=== PATIENT | female | born 1950 | race Caucasian/White ===

== ENCOUNTER → 2018-12-08 | Outpatient (CLI) | payer MEDICARE ==
[2018-12-08 12:01] LABS: ABSOLUTE EOSINOPHILS # (AUTO) 0.1 10^3/uL (0.0-0.6); ABSOLUTE LYMPHOCYTES (AUTO) 1.7 10^3/uL (0.5-4.7); ABSOLUTE MONOCYTES (AUTO) 0.4 10^3/uL (0.1-1.4); ABSOLUTE NEUT (AUTO) 2.4 10^3/uL (1.7-8.2); BASOPHILS % (AUTO) 0.5 % (0-2); EOSINOPHILS % (AUTO) 2.6 % (0-6); HEMOGLOBIN 12.8 g/dL (12.0-15.5); LYMPHOCYTES % (AUTO) 35.4 % (13-45); MEAN CORPUSCULAR HEMOGLOBIN 29.9 pg (27.0-33.4); MEAN CORPUSCULAR HGB CONC 33.7 g/dL (32.0-36.0); MEAN CORPUSCULAR VOLUME 89 fl (80-97); MONOCYTES % (AUTO) 9.6 % (3-13); PLATELET COUNT 190 10^3/uL (150-450); RED BLOOD COUNT 4.29 10^6/uL (3.72-5.28); RED CELL DISTRIBUTION WIDTH 15.8 % (11.5-14.0); SEGMENTED NEUTROPHILS % (AUTO) 51.9 % (42-78); TOTAL CELLS COUNTED % (AUTO) 100 %; WHITE BLOOD COUNT 4.7 10^3/uL (4.0-10.5)
[2018-12-08 12:11] LABS: APPEARANCE,URINE SLIGHTLY-CLOUDY; BILIRUBIN,URINE NEGATIVE (NEGATIVE); COLOR,URINE YELLOW; GLUCOSE, URINE NEGATIVE (NEGATIVE); KETONES,URINE NEGATIVE (NEGATIVE); LEUKOCYTE ESTERASE,URINE TRACE (NEGATIVE); NITRITE,URINE NEGATIVE (NEGATIVE); PROTEIN,URINE 30 mg/dL (NEGATIVE); URINE SPECIFIC GRAVITY 1.021; UROBILINOGEN,URINE NEGATIVE mg/dL (<2.0)
[2018-12-08 12:24] LABS: ALANINE AMINOTRANSFERASE 20 U/L (9-52); ALKALINE PHOSPHATASE 69 U/L (38-126); ANION GAP 6 (5-19); ASPARTATE AMINO TRANSFERASE 26 U/L (14-36); BILIRUBIN,DIRECT 0.2 mg/dL (0.0-0.4); BILIRUBIN,TOTAL 0.5 mg/dL (0.2-1.3); BLOOD UREA NITROGEN 22 mg/dL (7-20); CARBON DIOXIDE 33 mmol/L (22-30); CHLORIDE 103 mmol/L (98-107); CHOLESTEROL 153.85 mg/dL (0-200); GLUCOSE 88 mg/dL (75-110); POTASSIUM 5.4 mmol/L (3.6-5.0); SODIUM 142.4 mmol/L (137-145); TOTAL PROTEIN 7.2 g/dL (6.3-8.2); TRIGLYCERIDES 158 mg/dL (<150)
[2018-12-08 12:36] LABS: DIRECT LDL 97 mg/dL (<100)
[2018-12-08 12:41] LABS: VLDL CHOLESTEROL 31.6 mg/dL (10-31)
--- NOTE | 2018-12-08 12:43 | WOMENS IMAGING REPORT ---
EXAM DESCRIPTION: BONE DENSITY HIP/SPINE COMPLETED DATE/TIME: 12/08/2018 11:36 am REASON FOR STUDY: BONE DENSITY;M81.0 OSTEOPOROSIS W/ CURRENT PATHOLOGICAL FX R09.89 OTH SYMPTOMS AN D SIGNS INVOLVING THE CIRC AND RESP SY Z12.31 ENCNTR SCREEN MAMMOGRAM FOR MALIGNANT NEOPLASM OF CLIFFORD M81.0 AGE-RELATED OSTEOPOROSIS W/O CURRENT PATHOLOGICAL FRAC COMPARISON: None. TECHNIQUE: Dual-Energy X-ray Absorptiometry (DEXA) of the AP Spine and Hip. LIMITATIONS: None. FINDINGS: LUMBAR SPINE: The bone mineral density (BMD) measured from L1-L4 in the AP projection correlates with a T-score of -2.5, which is osteoporotic as defined by the World Health Organization. HIP: The bone mineral density (BMD) measured in the left femoral neck at the hip correlates with a T-score of -2.9, which is osteoporotic as defined by the World Health Organization. IMPRESSION: 1. LUMBAR SPINE: Osteoporotic 2. HIP: Osteoporotic COMMENT: The World Health Organization defines low BMD as follows: T-score: Normal: Greater than -1.0 Osteopenia: Between -1.0 and -2.5 Osteoporosis: Less than -2.5 without fractures Established osteoporosis: Less than -2.5 with fractures In general, you may wish to consider: Diagnosis Treatment Follow-up DEXA Normal BMD Prevention 2-3 years Osteopenia Prevention/Therapy 1-2 years Osteoporosis Therapy Yearly TECHNICAL DOCUMENTATION: JOB ID: [id number]- All Rights Reserved Reading location - IP/workstation name: [email or web address]
--- NOTE | 2018-12-08 14:20 | WOMENS IMAGING REPORT ---
EXAM DESCRIPTION: BILAT SCREENING MAMMO W/CAD COMPLETED DATE/TIME: 12/08/2018 11:11 am REASON FOR STUDY: Z12.31 ENCOUNTER FOR SCREENING MAMMOGRAM FOR MALIGNANT NEOPLASM OF BREAST R09.89 OTH SYMPTOMS AND SIGNS INVOLVING THE CIRC AND RESP SY Z12.31 ENCNTR SCREEN MAMMOGRAM FOR MALIGNANT N EOPLASM OF CLIFFORD COMPARISON: None. TECHNIQUE: Standard craniocaudal and mediolateral oblique views of each breast recorded using digita l acquisition. LIMITATIONS: None. FINDINGS: No masses, calcifications or architectural distortion. No areas of suspicion. Read with the assistance of CAD. .[facility] - R2 Cenova Version 1.3 .[facility] - R2 Cenova Version 2.1 .[facility] - R2 Cenova Version 2.4 [facility]2 Cenova Version 2.4 .[facility] - R2 [employer] Team Member Version 9.2 IMPRESSION: NORMAL MAMMOGRAM. BIRADS 1. BREAST DENSITY: b. There are scattered areas of fibroglandular density. BIRAD: 1 NEGATIVE RECOMMENDATION: ROUTINE SCREENING COMMENT: The patient has been notified of the results by letter per SA requirements. Additional no tification policies are in place for contacting patient with suspicious or incomplete findings. Quality ID #[id number]: The [employer] recommends an annual screening mammogram for women aged 40 years or over. This facility utilizes a reminder system to ensure that all patients receive reminder letters, and/or direct phone calls for appointments. This includes reminders for routine scr eening mammograms, diagnostic mammograms, or other Breast Imaging Interventions when appropriate. Th is patient will be placed in the appropriate reminder system. The [employer] (ACR) has developed recommendations for screening MRI of the breast s in certain patient populations, to be used in conjunction with mammography. Breast MRI surveillanc e may be appropriate for women with more than 20% lifetime risk of developing breast cancer as deter mined by genetic testing, significant family history of the disease, or history of mantle radiation f or Hodgkins Disease. ACR Practice Guidelines 2008. TECHNICAL DOCUMENTATION: FINDING NUMBER: (1) ASSESSMENT: (1) JOB ID: [id number] [employer]- All Rights Reserved Reading location - IP/workstation name: [email or web address]
--- NOTE | 2018-12-08 16:01 | RADIOLOGY REPORT (SQ) ---
EXAM DESCRIPTION: CAROTID DOPPLER COMPLETED DATE/TIME: 12/08/2018 3:06 pm REASON FOR STUDY: BRUIT R09.89 OTH SYMPTOMS AND SIGNS INVOLVING THE CIRC AND RESP SY Z12.31 ENCNTR SCREEN MAMMOGRAM FOR MALIGNANT NEOPLASM OF CLIFFORD M81.0 AGE-RELATED OSTEOPOROSIS W/O CURRENT PATHOLOGI JOSE DE JESUS FRAC COMPARISON: None. TECHNIQUE: Grayscale ultrasound, Doppler velocity and spectra, and color Doppler images acquired of the extra-cranial carotid and vertebral arteries. Images stored on PACS. LIMITATIONS: None. FINDINGS: RIGHT CAROTID CCA Velocities: Within normal limits. Peak systolic velocity right common carotid artery 0.59 m/sec. Diffuse intimal thickening ICA Velocities Peak systolic 0.85 m/s. End diastolic 0.30 m/s. Proximal ICA/CCA peak systolic ratio 1.9. Dense calcific shadowing plaque is present at the right carotid bifurcation. Immediately distal to he shadowing plaque, velocities suggest less than 50% diameter narrowing of the proximal right ICA. LEFT CAROTID CCA Velocities: Within normal limits. Peak systolic velocity left common carotid artery 0.59 m/sec. Diffuse intimal thickening. ICA Velocities Peak systolic 0.45 m/s. End diastolic 0.18 m/s. Proximal ICA/CCA peak systolic ratio 1.6. Dense calcific shadowing plaque is present at the left carotid bifurcation. Immediately distal to th e shadowing plaque, velocities suggest less than 50% diameter narrowing of the proximal left ICA VERTEBRAL ARTERIES: Antegrade flow. Normal waveforms. SUBCLAVIAN ARTERIES: Not evaluated OTHER: No other significant finding. IMPRESSION: NO HEMODYNAMICALLY SIGNIFICANT STENOSIS OF THE PROXIMAL RIGHT AND LEFT INTERNAL CAROTID ARTERIES. COMMENT: Quality ID #195: Velocity criteria are extrapolated from the diameter data as defined by t he Society of Radiologists in Ultrasound Consensus Conference. Radiology 2003: 229; 340-346. TECHNICAL DOCUMENTATION: JOB ID: [id number] [employer]- All Rights Reserved Reading location - IP/workstation name: [email or web address]
[2018-12-09 12:38] LABS: CREATININE URINE 200.6 mg/dL (Not Estab.); MICROALBUMIN URINE 86.2 ug/mL (Not Estab.)
== END ==
LOC: SP 09:12
PROVIDERS: ATTEND Internal Medicine
DX: Z12.31 Encounter for screening mammogram for malignant neoplasm of breast (principal); M81.0 Age-related osteoporosis without current pathological fracture; I10 Essential (primary) hypertension; R09.89 Other specified symptoms and signs involving the circulatory and respiratory systems; E78.49 Other hyperlipidemia; I42.9 Cardiomyopathy, unspecified; I73.9 Peripheral vascular disease, unspecified; R73.01 Impaired fasting glucose; Z79.899 Other long term (current) drug therapy
CPT/HCPCS: 36415; 77067; 77080; 80053; 80061; 81001; 82043; 82570; 82652; 83036; 84443; 85025; 93880

== ENCOUNTER → 2018-12-17 | Outpatient (CLI) | payer MEDICARE | LOC: OD 13:32 | PROVIDERS: ATTEND Internal Medicine | DX: E87.5 Hyperkalemia (principal) | CPT/HCPCS: 36415; 84132 ==

== ENCOUNTER → 2019-02-24 | Outpatient (CLI) | payer MEDICARE ==
[2019-02-24 10:10] LABS: ANION GAP 9 (5-19); BLOOD UREA NITROGEN 19 mg/dL (7-20); CALCIUM 10.3 mg/dL (8.4-10.2); CARBON DIOXIDE 32 mmol/L (22-30); CHLORIDE 101 mmol/L (98-107); CHOLESTEROL 127.86 mg/dL (0-200); GLUCOSE 97 mg/dL (75-110); POTASSIUM 4.7 mmol/L (3.6-5.0); SODIUM 141.8 mmol/L (137-145); TRIGLYCERIDES 91 mg/dL (<150)
[2019-02-24 10:21] LABS: DIRECT LDL 85 mg/dL (<100)
== END ==
LOC: OD 09:12
PROVIDERS: ATTEND Internal Medicine
DX: N19 Unspecified kidney failure (principal); E78.5 Hyperlipidemia, unspecified
CPT/HCPCS: 36415; 80048; 80061

== ENCOUNTER → 2019-04-27 | Outpatient (CLI) | payer MEDICARE, OTHER ==
[2019-04-27 11:01] LABS: ANION GAP 6 (5-19); BLOOD UREA NITROGEN 17 mg/dL (7-20); CALCIUM 9.8 mg/dL (8.4-10.2); CARBON DIOXIDE 29 mmol/L (22-30); CHLORIDE 106 mmol/L (98-107); CHOLESTEROL 123.41 mg/dL (0-200); GLUCOSE 91 mg/dL (75-110); POTASSIUM 4.8 mmol/L (3.6-5.0); TRIGLYCERIDES 74 mg/dL (<150)
[2019-04-27 11:32] LABS: DIRECT LDL 86 mg/dL (<100)
== END ==
LOC: OD 09:32
PROVIDERS: ATTEND Internal Medicine
DX: N19 Unspecified kidney failure (principal); E11.9 Type 2 diabetes mellitus without complications; E78.5 Hyperlipidemia, unspecified; E55.9 Vitamin D deficiency, unspecified
CPT/HCPCS: 36415; 80048; 80061; 82306; 83036

== ENCOUNTER → 2019-07-26 | Outpatient (CLI) | payer MEDICARE, OTHER ==
[2019-07-26 10:50] LABS: ANION GAP 8 (5-19); BLOOD UREA NITROGEN 18 mg/dL (7-20); CALCIUM 10.4 mg/dL (8.4-10.2); CARBON DIOXIDE 31 mmol/L (22-30); CHLORIDE 102 mmol/L (98-107); CHOLESTEROL 147.53 mg/dL (0-200); GLUCOSE 92 mg/dL (75-110); TRIGLYCERIDES 109 mg/dL (<150)
[2019-07-26 11:00] LABS: DIRECT LDL 102 mg/dL (<100)
== END ==
LOC: OD 08:53
PROVIDERS: ATTEND Family Medicine
DX: E78.5 Hyperlipidemia, unspecified (principal); N18.3 Chronic kidney disease, stage 3 (moderate); E55.9 Vitamin D deficiency, unspecified; E11.9 Type 2 diabetes mellitus without complications
CPT/HCPCS: 36415; 80048; 80061; 82306; 83036

== ENCOUNTER → 2019-11-18 | Outpatient (CLI) | payer MEDICARE, OTHER ==
[2019-11-18 10:13] LABS: ALBUMIN 3.7 g/dL (3.5-5.0); ALKALINE PHOSPHATASE 65 U/L (38-126); ANION GAP 5 (5-19); ASPARTATE AMINO TRANSFERASE 31 U/L (14-36); BILIRUBIN,TOTAL 0.3 mg/dL (0.2-1.3); BLOOD UREA NITROGEN 19 mg/dL (7-20); CALCIUM 9.7 mg/dL (8.4-10.2); CARBON DIOXIDE 30 mmol/L (22-30); CHLORIDE 106 mmol/L (98-107); CHOLESTEROL 105.85 mg/dL (0-200); GLUCOSE 76 mg/dL (75-110); POTASSIUM 4.7 mmol/L (3.6-5.0); TOTAL PROTEIN 6.7 g/dL (6.3-8.2); TRIGLYCERIDES 74 mg/dL (<150)
[2019-11-18 10:24] LABS: DIRECT LDL 75 mg/dL (<100)
[2019-11-19 13:37] LABS: CREATININE URINE 110.3 mg/dL (Not Estab.); MICROALBUMIN URINE 86.9 ug/mL (Not Estab.)
== END ==
LOC: OD 08:30
PROVIDERS: ATTEND Family Medicine
DX: M25.552 Pain in left hip (principal); E11.9 Type 2 diabetes mellitus without complications; E78.2 Mixed hyperlipidemia
CPT/HCPCS: 36415; 80053; 80061; 82043; 82570; 83036

== ENCOUNTER 2020-03-27 16:06 | Emergency (ER) | payer MEDICARE, OTHER ==
--- NOTE | 2020-03-27 16:22 | ER Document Report ---
ED Medical Screen (RME) - General Chief Complaint: Suicidal Ideation Stated Complaint: SUICIDAL IDEATION Time Seen by Provider: 03/27/20 16:16 Primary Care Provider: BASILIO KUO MD [Primary Care Provider] - Follow up as needed Mode of Arrival: Ambulatory Information source: Patient Notes: 69-year-old female presented to ED for suicidal ideation. She states that she had a fight with her daughter and she told her daughter that maybe she should just . She states she was not serious she did not really mean she was can harm herself. She states that her daughter brought her to the emergency room. She states she does get depressed sometimes and she has a fight with her daughter sometimes. She states she does smoke 4 cigarettes a day does not drink alcohol or do any illicit drugs. I have greeted and performed a rapid initial assessment of this patient. A comprehensive ED assessment and evaluation of the patient, analysis of test results and completion of medical decision making process will be conducted by an additional ED providers. TRAVEL OUTSIDE OF THE [place] IN LAST 30 DAYS: No - Related Data Allergies/Adverse Reactions: No Known Allergies Allergy (Verified 03/27/20 16:16) Physical Exam - Vital signs Vitals: Temp Pulse Resp BP Pulse Ox 97.7 F 73 18 127/97 H 100 03/27/20 16:14 03/27/20 16:14 03/27/20 16:14 03/27/20 16:14 03/27/20 16:14 Course - Vital Signs Vital signs: Temp Pulse Resp BP Pulse Ox 97.7 F 73 18 127/97 H 100 03/27/20 16:14 03/27/20 16:14 03/27/20 16:14 03/27/20 16:14 03/27/20 16:14 Doctor's Discharge - Discharge Referrals: BASILIO KUO MD [Primary Care Provider] - Follow up as needed
[2020-03-27 17:18] LABS: ABSOLUTE BASOPHILS # (AUTO) 0.1 10^3/uL (0.0-0.2); ABSOLUTE EOSINOPHILS # (AUTO) 0.2 10^3/uL (0.0-0.6); ABSOLUTE LYMPHOCYTES (AUTO) 1.9 10^3/uL (0.5-4.7); ABSOLUTE MONOCYTES (AUTO) 0.8 10^3/uL (0.1-1.4); ABSOLUTE NEUT (AUTO) 9.2 10^3/uL (1.7-8.2); BASOPHILS % (AUTO) 0.6 % (0-2); EOSINOPHILS % (AUTO) 1.3 % (0-6); HEMATOCRIT 46.7 % (36.0-47.0); HEMOGLOBIN 15.7 g/dL (12.0-15.5); LYMPHOCYTES % (AUTO) 15.6 % (13-45); MEAN CORPUSCULAR HEMOGLOBIN 31.3 pg (27.0-33.4); MEAN CORPUSCULAR HGB CONC 33.6 g/dL (32.0-36.0); MEAN CORPUSCULAR VOLUME 93 fl (80-97); MONOCYTES % (AUTO) 6.6 % (3-13); PLATELET COUNT 240 10^3/uL (150-450); RED BLOOD COUNT 5.02 10^6/uL (3.72-5.28); RED CELL DISTRIBUTION WIDTH 14.4 % (11.5-14.0); SEGMENTED NEUTROPHILS % (AUTO) 75.9 % (42-78); TOTAL CELLS COUNTED % (AUTO) 100 %; WHITE BLOOD COUNT 12.1 10^3/uL (4.0-10.5)
[2020-03-27 17:43] LABS: ALBUMIN 4.7 g/dL (3.5-5.0); ALKALINE PHOSPHATASE 102 U/L (38-126); ANION GAP 6 (5-19); ASPARTATE AMINO TRANSFERASE 53 U/L (14-36); BILIRUBIN,DIRECT 0.1 mg/dL (0.0-0.4); BILIRUBIN,TOTAL 0.7 mg/dL (0.2-1.3); BLOOD UREA NITROGEN 10 mg/dL (7-20); CALCIUM 10.6 mg/dL (8.4-10.2); CARBON DIOXIDE 31 mmol/L (22-30); CHLORIDE 102 mmol/L (98-107); GLUCOSE 92 mg/dL (75-110); TOTAL PROTEIN 8.3 g/dL (6.3-8.2)
[2020-03-27 17:44] LABS: ALCOHOL < 10 mg/dL (NONE DETECTED); APPEARANCE,URINE CLEAR; BILIRUBIN,URINE NEGATIVE (NEGATIVE); COLOR,URINE YELLOW; GLUCOSE, URINE NEGATIVE (NEGATIVE); KETONES,URINE NEGATIVE (NEGATIVE); LEUKOCYTE ESTERASE,URINE NEGATIVE (NEGATIVE); NITRITE,URINE NEGATIVE (NEGATIVE); PROTEIN,URINE NEGATIVE (NEGATIVE); URINE SPECIFIC GRAVITY 1.005; UROBILINOGEN,URINE NEGATIVE mg/dL (<2.0)
[2020-03-27 17:45] LABS: ACETAMINOPHEN < 10 ug/mL (10-30); SALICYLATE < 1.0 mg/dL (2.0-20.0)
[2020-03-27 18:04] LABS: URINE AMPHETAMINES SCREEN NEGATIVE; URINE BARBITURATES SCREEN NEGATIVE; URINE BENZODIAZEPINES SCREEN NEGATIVE; URINE COCAINE SCREEN NEGATIVE; URINE MARIJUANA (THC) SCREEN NEGATIVE; URINE METHADONE SCREEN NEGATIVE; URINE PHENCYCLIDINE SCREEN NEGATIVE
--- NOTE | 2020-03-27 18:41 | ER Document Report ---
ED Psych Disorder / Suicide - General Mode of Arrival: Ambulatory Information source: Patient, Relative TRAVEL OUTSIDE OF THE [place] IN LAST 30 DAYS: No <SHUBHAM LUBIN - Last Filed: 03/27/20 20:22> <JULIEN OLSON - Last Filed: 03/28/20 12:25> <VALERIEJOI Damaris - Last Filed: 03/28/20 14:59> - General Chief Complaint: Psych Problem Stated Complaint: SUICIDAL IDEATION Time Seen by Provider: 03/27/20 16:16 Primary Care Provider: [facility] [Outside] - Follow up as needed BASILIO KUO MD [COMMUNITY BASED STAFF] - Follow up as needed Notes: This 69-year-old female patient is brought to emergency room for evaluation of suicidal ideations. Her daughter had noted some signs suggesting dementia recently. The patient was living in a home in front of the daughter's house, but her spouse had to move in with the daughter due to his declining health. The patient and her spouse moved to this area from [place] about 2 years ago to be with the daughter. The patient misses her friends in [place]. She did say something to the daughter today about cutting herself or suicide. ( SHUBHAM LUBIN) - Related Data Allergies/Adverse Reactions: No Known Allergies Allergy (Verified 03/27/20 16:16) Past Medical History - General Information source: Patient - Social History Smoking Status: Current Every Day Smoker Cigarette use (# per day): Yes Chew tobacco use (# tins/day): No Smoking Education Provided: No Frequency of alcohol use: None Drug Abuse: None Lives with: Alone Family History: Reviewed & Not Pertinent Patient has homicidal ideation: No - Past Medical History Cardiac Medical History: Reports: Hx Hypercholesterolemia EENT Medical History: Reports: Other - Glaucoma Endocrine Medical History: Reports: Hx Diabetes Mellitus Type 2 Musculoskeletal Medical History: Reports Other - Osteoporosis Psychiatric Medical History: Reports: Hx Dementia <SHUBHAM LUBIN - Last Filed: 03/27/20 20:22> Review of Systems - Review of Systems Constitutional: No symptoms reported EENT: No symptoms reported Cardiovascular: No symptoms reported Respiratory: No symptoms reported Gastrointestinal: No symptoms reported Genitourinary: No symptoms reported Female Genitourinary: Post menopausal Musculoskeletal: No symptoms reported Skin: No symptoms reported Hematologic/Lymphatic: No symptoms reported Neurological/Psychological: Dementia, Suicidal ideation <SHUBHAM LUBIN - Last Filed: 03/27/20 20:22> Physical Exam - Vital signs Interpretation: Normal - General General appearance: Appears well, Alert In distress: None - HEENT Head: Normocephalic, Atraumatic Eyes: Normal Pupils: PERRL - Respiratory Respiratory status: No respiratory distress Breath sounds: Normal - Cardiovascular Rhythm: Regular Heart sounds: Normal auscultation Murmur: No - Abdominal Inspection: Normal Bowel sounds: Normal Tenderness: Nontender - Back Back: Normal - Extremities General upper extremity: Normal inspection General lower extremity: Normal inspection - Neurological Neuro grossly intact: Yes Cognition: Other - Patient does seem to be a little demented. - Psychological Associated symptoms: Depressed - Patient does appear to be a little depressed, denies any suicidal ideation, but her answers are not appropriate. She talks about people who are suicidal put it in the newspaper and other nonsensical phrases. - Skin Skin Temperature: Warm Skin Moisture: Dry Skin Color: Normal <SHUBHAM LUBIN - Last Filed: 03/27/20 20:22> - Vital signs Vitals: Temp Pulse Resp BP Pulse Ox 97.7 F 73 18 127/97 H 100 03/27/20 16:14 03/27/20 16:14 03/27/20 16:14 03/27/20 16:14 03/27/20 16:14 Course - Laboratory Result Diagrams: 03/27/20 17:00 03/27/20 17:00 - EKG Interpretation by Wy EKG shows normal: Sinus rhythm, [place], Intervals, QRS Complexes, ST-T Waves Rate: Normal - 58 Rhythm: NSR [place]/QRS: LBBB <SHUBHAM LUBIN - Last Filed: 03/27/20 20:22> - Laboratory Result Diagrams: 03/27/20 17:00 03/27/20 17:00 <JULIEN OLSON - Last Filed: 03/28/20 12:25> - Laboratory Result Diagrams: 03/27/20 17:00 03/27/20 17:00 <JOI PADILLA - Last Filed: 03/28/20 14:59> - Re-evaluation Re-evalutation: 03/27/20 19:36 Patient was seen by Dr. Olson. The plan at this time is to reevaluate in the morning and probably discharge home. (SHUBHAM LUBIN) - Vital Signs Vital signs: Temp Pulse Resp BP Pulse Ox 98.0 F 53 L 14 139/60 H 98 03/28/20 11:36 03/28/20 11:36 03/28/20 11:36 03/28/20 11:36 03/28/20 11:36 - Laboratory Laboratory results interpreted by me: 03/27/20 03/27/20 03/27/20 17:00 17:00 17:00 WBC 12.1 H Hgb 15.7 H RDW 14.4 H Absolute Neuts (auto) 9.2 H Carbon Dioxide 31 H Calcium 10.6 H AST 53 H Total Protein 8.3 H Urine Blood SMALL H Salicylates < 1.0 L Acetaminophen < 10 L Discharge <SHUBHAM LUBIN - Last Filed: 03/27/20 20:22> <JULIEN OLSON - Last Filed: 03/28/20 12:25> <JOI PADILLA - Last Filed: 03/28/20 14:59> - Discharge Clinical Impression: Depression Qualifiers: Depression Type: unspecified Qualified Code(s): F32.9 - Major depressive disorder, single episode, unspecified Dementia Qualifiers: Dementia type: unspecified type Dementia behavioral disturbance: without b ehavioral disturbance Qualified Code(s): F03.90 - Unspecified dementia without behavioral disturbance Condition: Stable Disposition: HOME, SELF-CARE Additional Instructions: You were seen and evaluated by the medical and behavioral health teams of [facility] ED for suicidal ideations and now deemed appropriate for discharge. While in the ED, you received the following: psychiatric and medical assessments, counseling, nursing, patient access, security, dietary, and environmental services. Results of your assessment suggested you are struggling with mild depression and possibly some memory difficulties stemming from some dementia like processes. As a result, you are encouraged and recommended to follow up with outpatient primary care provider as well as a neurologist to further assess the memory problems observed and reported. The depression you reported could be related to the dementia like process or could be a manifestation of situational factors you are currently experiencing. You did not require medication while at the hospital but your primary care provider may have a different opinion following their evaluation. You are also encouraged to continue to follow up with [facility] for your depression and to consider counseling with a therapist to address coping with changes in life circumstances and current situational factors, and ways to better manage your stress. DEPRESSION: Your evaluation reveals that you have depression. While symptoms may be vague, they often include disturbance of sleep, fatigue, loss of appetite, and general loss of interest in life. While depression may be a side effect of drugs, or a reaction to a major change in your life, many cases have no known cause. If depression is acute, and related to a major loss in your life, you can expect it to clear completely with time. If you have been depressed a long time, are prone to repeated bouts of depression or low mood, or have been thinking of suicide, get help. Depression can be treated with anti-depressant medication and counselling. Long-term depression will often take a few weeks to clear, even with appropriate medication. Follow-up care is important. SUICIDAL IDEATION: Suicidal ideation is a common medical term for thoughts about suicide, which may be as detailed as a formulated plan, without the suicidal act itself. Although most people who undergo suicidal ideation do not commit suicide, some go on to make suicide attempts. The range of suicidal ideation varies greatly from fleeting to detailed planning, role playing, and unsuccessful attempts. While thoughts about suicide are common, most people do not carry out serious actions to commit suicide. Based upon your evaluation and discussion with you, we do not believe you are currently at risk to act upon your thoughts of suicide. You have agreed to return to the Emergency Department, at any time, if you feel inclined to act upon your suicidal thoughts. FOLLOW-UP CARE: If you have been referred to a physician for follow-up care, call the physicians office for an appointment as you were instructed or within the next two days. If you experience worsening or a significant change in your symptoms, notify the physician immediately or return to the Emergency Department at any time for re-evaluation. Referrals: BASILIO KUO MD [COMMUNITY BASED STAFF] - Follow up as needed [facility] [Outside] - Follow up as needed
--- NOTE | 2020-03-27 19:56 | EKG REPORT ---
SEVERITY:- ABNORMAL ECG - SINUS RHYTHM LEFT BUNDLE BRANCH BLOCK : Confirmed by: Ortiz Jimenez MD 27-Mar-2020 19:56:09
[2020-03-27] MEDS: CARVEDILOL 12.5 MG TABLET PO SCH (21:09)
[2020-03-27] MEDS: METFORMIN HCL 500 MG TABLET PO SCH (21:09)
[2020-03-27] MEDS: SACUBITRIL/VALSARTAN 24 MG/26 MG TABLET PO SCH (21:55)
[2020-03-27] MEDS: LATANOPROST 0.005% OPH SOLN 2.5 ML OU SCH (21:56)
[2020-03-28] MEDS: METFORMIN HCL 500 MG TABLET PO SCH ×2 (10:33→18:48)
[2020-03-28] MEDS: SACUBITRIL/VALSARTAN 24 MG/26 MG TABLET PO SCH ×2 (10:33→18:49)
[2020-03-28] MEDS: CARVEDILOL 12.5 MG TABLET PO SCH ×2 (10:34→18:48)
[2020-03-28] MEDS: ATORVASTATIN CALCIUM 40 MG TABLET PO SCH (10:34)
[2020-03-28] MEDS: FENOFIBRATE NANOCRYSTALLIZED 145 MG TABLET PO SCH (10:34)
--- NOTE | 2020-03-28 12:25 | ER Document Report ---
Doctor's Note Notes: 03/27/20 13:09 Received telephone call from Ivana of [facility] stating she was out with Patient who was "suicidal with a plan." She reported the plan was either putting a knife to her neck or overdosing on her medications. She reported the Patient was highly agitated regarding some situational factors at home to include her daughter having guardianship of Patient's and moving her into her daughter's home which is behind the Patient's home, leaving the Patient to live alone. Ivana reported the Patient is able to care for herself but the daughter has significant concerns for her mother's memory and for possible dementia. She indicated the Patient will refuse to eat, to take her prescribed medical medications, then threatened to take them all in a revengeful manner. Patient reportedly agreed to come to hospital with Ivana but Ivana warned she was likely to be manipulative. Met with Patient who stated she was unclear as to why she was at hospital. She stated, "If I wanted to kill myself, I would not put on a performance, I would just do it." When advised her statements concerned her family and others, she commented, "I was just joking. I was mad and trying to get them to understand." Patient denied a history of mental health or substance abuse problems and denied feeling or being suicidal. She reported she gets upset and angry with her daughter and at times and makes these statements to get their attention. Patient admitted to experiencing some memory issues and irritability along with some minor depression, but denied it was anything that required "this. I don't need to be in a hospital, I need to be home." When asked what her plans were for resolving her current situation up on returning home, she indicated a need to resume her home medications nad follow up with her doctor, as well as check on her who is reportedly not well. Patient is alert and oriented to person, place, time, and circumstance. Mood was pleasant, cooperative, and anxious. Affect was full range. She denied suicidal /homicidal ideation, intent or plan. She denied auditory/visual hallucinations and no delusions were noted. Thought processes were organized, linear, and logical. Conversational speech was within normal limits for rate, tone, and prosody for her dialect. Eye contact was well maintained and memory was fair for recent, immediate, and remote events. Intellectual abilities are estimated within the average range. Attention and concentration are within normal limits while insight, judgment, and impulse control are fair. Clinical Presentation Anxious Slightly manipulative Mildly Depressed Cluster B Personality Characteristics Impression/Plan: Patient is cleared from acute psychiatric services. Patient was pleasant and cooperative during evaluation though she made observable attempts at manipulation. She admitted to some mild depression and anxiety but adamantly denied suicidal ideation, intent or plan, stating "If I wanted to kill myself, I would not put on a performance." Patient demonstrates some cluster B personality traits that lend to troublesome behaviors and there is likely concern for a dementia like process based on collateral information and physician evaluation. As such, she is recommended to follow up with a neurologist for further evalu ation of this problem, along with follow up with her primary child care assistant and follow through with [facility] for linkage to ongoing to mental health services for treatment of her depression and anxiety. Plan is to keep patient overnight in ED for voluntary observation and to allow emotions to subside, and link to noted services after re-evaluation tomorrow. Attending physician in agreement with recommendation and disposition.
--- NOTE | 2020-03-28 14:58 | ER Document Report ---
Doctor's Note Notes: 03/28/20 14:57 69-year-old female patient in the emergency department due to depressive state. Patient had entertained some suicidal ideation thoughts and therefore was being evaluated by the mental health team. It has been determined that patient is medically stable and can be discharged home with her daughter. [facility] has been contacted and patient plans to have an appointment with [facility] for further evaluation as an outpatient. 03/28/20 14:58 Vital signs are stable and patient is in no acute distress at this time.
--- NOTE | 2020-03-28 17:26 | ER Document Report ---
Doctor's Note Notes: 03/28/20 17:25 Patient's vital signs and previous labs, diagnostic images reviewed. Reviewed mental health notes, nurse's notes and previous providers notes. VSS. Pt is in no distress at this time. Denies any SI or HI. General: A&Ox3. Answers questions appropriately. Heart: RRR Lungs: CTAB Psych: Flat affect A/P: Continue monitoring and rec's per MH. Normal diet looking to d/c at this time by mental health 03/28/20 17:25
--- NOTE | 2020-03-28 18:21 | ER Document Report ---
Doctor's Note Notes: 03/28/20 18:20 The patient has been quite depressed today with crying and confused and occasionally asking to be killed. She will be placed on IVC hold at this time, and medications will be added to start tonight with Depakote ER 250 twice daily, and BuSpar 5 mg twice daily.
[2020-03-28] MEDS: DIVALPROEX SODIUM 250 MG TABLET.DR PO SCH (18:47)
[2020-03-28] MEDS: BUSPIRONE HCL 10 MG TABLET PO SCH (18:48)
[2020-03-28] MEDS: LATANOPROST 0.005% OPH SOLN 2.5 ML OU SCH (22:15)
[2020-03-29] MEDS ORDERED: HALOPERIDOL 5 MG TABLET PO ONE (01:37)
[2020-03-29] MEDS ORDERED: MELATONIN 5 MG TABLET PO ONE (04:48)
[2020-03-29] MEDS: DIVALPROEX SODIUM 250 MG TABLET.DR PO SCH ×2 (11:18→17:50)
[2020-03-29] MEDS: BUSPIRONE HCL 10 MG TABLET PO SCH ×2 (11:18→17:52)
[2020-03-29] MEDS: CARVEDILOL 12.5 MG TABLET PO SCH ×2 (11:18→17:52)
[2020-03-29] MEDS: METFORMIN HCL 500 MG TABLET PO SCH ×2 (11:19→17:52)
[2020-03-29] MEDS: ATORVASTATIN CALCIUM 40 MG TABLET PO SCH (11:20)
[2020-03-29] MEDS: FENOFIBRATE NANOCRYSTALLIZED 145 MG TABLET PO SCH (12:16)
[2020-03-29] MEDS: SACUBITRIL/VALSARTAN 24 MG/26 MG TABLET PO SCH ×2 (12:17→17:49)
--- NOTE | 2020-03-29 14:47 | ER Document Report ---
Doctor's Note Notes: 03/29/20 12:05 Patient ambulating back and forth to the restroom. Patient remains IVC'd. Plan is to potentially discharge the patient home under the care of her daughter. 14:00 Discharge planning has been consulted. Per mental health the patient is to stay overnight, see discharge planning for resources within the community and discharge tomorrow so she can make her appointment at 3 PM.
[2020-03-29] MEDS: LATANOPROST 0.005% OPH SOLN 2.5 ML OU SCH (22:41)
[2020-03-30] MEDS ORDERED: ACETAMINOPHEN 325 MG TABLET PO ONE (00:29)
[2020-03-30] MEDS ORDERED: MELATONIN 5 MG TABLET PO ONE (02:07)
[2020-03-30] MEDS ORDERED: HALOPERIDOL 5 MG TABLET PO ONE (03:34)
[2020-03-30] MEDS ORDERED: HALOPERIDOL LACTATE INJ 5 MG/1 ML VIAL IM ONE ×2 (03:35→08:14)
[2020-03-30] MEDS ORDERED: ZIPRASIDONE MESYLATE INJ/PF 20 MG SDV IM ONE (04:36)
--- NOTE | 2020-03-30 04:38 | ER Document Report ---
Doctor's Note Notes: 03/30/20 04:36 I have attempted to get patient to calm down, she became very agitated and restless, we gave her 5 mg of melatonin and 2.5 mg of Haldol which worked well last night but this did not work tonight. Patient became more agitated, she ripped a large piece of the wall off including screws. She left the room and would not be redirected back to the room, she became very agitated. Unfortunately we had to give 10 mg of Geodon and temporary restraints were placed. Discussed with Dr. Blancas. 03/30/20 07:37 Patient will be taken out of restrains, if she becomes violent she will need to be restrained again.
[2020-03-30] MEDS: ATORVASTATIN CALCIUM 40 MG TABLET PO SCH (10:22)
[2020-03-30] MEDS: DIVALPROEX SODIUM 250 MG TABLET.DR PO SCH (10:23)
[2020-03-30] MEDS: FENOFIBRATE NANOCRYSTALLIZED 145 MG TABLET PO SCH (10:23)
[2020-03-30] MEDS: BUSPIRONE HCL 10 MG TABLET PO SCH ×2 (10:24→18:08)
[2020-03-30] MEDS: SACUBITRIL/VALSARTAN 24 MG/26 MG TABLET PO SCH ×2 (10:24→18:11)
[2020-03-30] MEDS: METFORMIN HCL 500 MG TABLET PO SCH ×2 (10:24→18:09)
[2020-03-30] MEDS: CARVEDILOL 12.5 MG TABLET PO SCH ×2 (10:24→18:09)
--- NOTE | 2020-03-30 11:34 | RADIOLOGY REPORT (SQ) ---
EXAM DESCRIPTION: CT HEAD WITHOUT IMAGES COMPLETED DATE/TIME: 03/30/2020 11:26 am REASON FOR STUDY: ams R45.851 SUICIDAL IDEATIONS F32.9 MAJOR DEPRESSIVE DISORDER, SINGLE EPISODE, UNSPECIFIED F03.90 UNSPECIFIED DEMENTIA WITHOUT BEHAVIORAL DISTURBANCE COMPARISON: None. TECHNIQUE: Axial images acquired through the brain without intravenous contrast. Images reviewed wi th bone, brain and subdural windows. Additional sagittal and coronal reconstructions were generated. Images stored on PACS. All CT scanners at this facility use dose modulation, iterative reconstruction, and/or weight based d osing when appropriate to reduce radiation dose to as low as reasonably achievable (ALARA). [facility]: Dose Right [facility]: CareDose [facility]: Dose Right [facility]: Teradose 4D [facility]: [employer] RADIATION DOSE: CT Rad equipment meets quality standard of care and radiation dose reduction techniq ues were employed. CTDIvol: 53.2 mGy. DLP: 1044 mGy-cm. mGy. LIMITATIONS: None. FINDINGS: VENTRICLES: Normal size and contour. CEREBRUM: No masses. No hemorrhage. No midline shift. No evidence for acute infarction. Normal gra y/white matter differentiation. No areas of low density in the white matter. CEREBELLUM: No masses. No hemorrhage. No alteration of density. No evidence for acute infarction. EXTRAAXIAL SPACES: No fluid collections. No masses. ORBITS AND GLOBE: No intra- or extraconal masses. Normal contour of globe without masses. CALVARIUM: No fracture. PARANASAL SINUSES: No fluid or mucosal thickening. SOFT TISSUES: No mass or hematoma. OTHER: No other significant finding. IMPRESSION: NORMAL BRAIN CT WITHOUT CONTRAST. EVIDENCE OF ACUTE STROKE: NO. COMMENT: Quality ID # [id number]: Final reports with documentation of one or more dose reduction techniques (e.g., Automated exposure control, adjustment of the mA and/or kV according to patient size, use of iterative reconstruction technique) TECHNICAL DOCUMENTATION: JOB ID: [id number] 2010 [employer]- All Rights Reserved Reading location - IP/workstation name: [email or web address]
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
[2020-03-30] MEDS: DIVALPROEX SODIUM 125 MG CAP.SPRINK PO SCH (18:08)
[2020-03-30] MEDS: RISPERIDONE 0.25 MG TABLET PO SCH (18:09)
--- NOTE | 2020-03-30 18:17 | PSYCHOLOGICAL NOTE ---
Psych Note - Psych Note Date seen by psych provider: 03/30/20 Time seen by psych provider: 10:45 Psych Note: Reason for Consult: Suicidal ideation Patient is a 69 year old female who presented to the [facility] ED for concerns of suicidal statements, having mood lability and increased aggression towards family. Check in conducted with patient: Patient is observed by clinician needed frequent redirection from staff. She has pulled chair rail panels off the wall and has started fidgeting with the stretcher. She presents confused and appears to not remember clinician or the conversation from the previous evening about going to the specialist today with her daughter. Clinician spoke with patient's daughter in lobby to provided plan of care update, answer questions and to provided folder from discharge planning with resource information. Clinical Presentation: Mood Lability (euthymic to dsyphoric and tearful to irritable with yelling) Confusion; needing frequent re-direction Unable or unwilling to demonstrate insight and impulse control Medication recommendations: Add Clonidine patch 0.1mg Add Rispirdone .025mg twice daily for agitation and aggression Change Depakote 250mg to Depakote sprinkles 250mg twice a day for mood stabilization Continue Buspar 5mg twice a day for anxiety/calming effect/depression/sleep Impression/Plan:Patient has been placed on Full IVC; paperwork is signed, faxed to stove refinisher and placed in patient's chart. Patient is now unable to effectively engage in evaluation. She is demonstrating a lack of impulse control (has started dismantling her room) and needs frequent re-direction. She appears to not remember clinician from the day before or plan of care. Head CT was conducted with no findings. Dr. Hugo was consulted on the care and management of this patient; attending physician is in agreement with recommendations and disposition. Case management: Patient's paperwork submitted for review for placement: [facility]: denied [place]: [place]: [facility]: [facility]: [facility]: Lupe Fu: Joa[facility]: Renetta:
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
--- NOTE | 2020-03-30 19:27 | ER Document Report ---
Doctor's Note Notes: 03/30/20 19:22 Patient's vital signs and previous labs, diagnostic images reviewed. Reviewed mental health notes, nurse's notes and previous providers notes. VSS. Patient did remove a piece of plastic from the room on assembler 1st shift and did need to be physically restrained along with chemical restraint as well. 0815-aggressive towards staff. 0830, patient did receive Haldol 0.25 mg IM to help her agitation and aggression mental health did request a CT of her head due to patient at times acting confused, acting like she does not under understand Vietnamese however she does understand Vietnamese. CT of head unremarkable. Patient's mood today has been very labile. Later half of afternoon patient did sleep mostly. mental health team will be keeping patient for further evaluation. General: A&Ox3. Answers questions appropriately. Heart: RRR Lungs: CTAB Psych: Flat affect A/P: Continue monitoring and rec's per MH. Normal diet Consider placement.
[2020-03-30] MEDS: LATANOPROST 0.005% OPH SOLN 2.5 ML OU SCH (22:00)
--- NOTE | 2020-03-31 09:36 | ER Document Report ---
Doctor's Note Notes: 03/31/20 09:35 Patient is resting quietly no distress not acting out at this time. Awaiting psychiatric disposition 03/31/20 09:39 I do note that the patient is on metformin twice daily. There is no history of diabetes noted in the chart. Unknown why the patient is on this medication. Will have nursing do daily Accu-Cheks
[2020-03-31] MEDS: METFORMIN HCL 500 MG TABLET PO SCH ×2 (10:41→18:23)
[2020-03-31] MEDS: DIVALPROEX SODIUM 125 MG CAP.SPRINK PO SCH ×2 (10:41→18:23)
[2020-03-31] MEDS: CARVEDILOL 12.5 MG TABLET PO SCH ×2 (10:41→18:22)
[2020-03-31] MEDS: RISPERIDONE 0.25 MG TABLET PO SCH ×2 (10:41→18:23)
[2020-03-31] MEDS: ATORVASTATIN CALCIUM 40 MG TABLET PO SCH (10:42)
[2020-03-31] MEDS: BUSPIRONE HCL 10 MG TABLET PO SCH ×2 (10:42→18:23)
[2020-03-31] MEDS: FENOFIBRATE NANOCRYSTALLIZED 145 MG TABLET PO SCH (10:51)
[2020-03-31] MEDS: SACUBITRIL/VALSARTAN 24 MG/26 MG TABLET PO SCH ×2 (10:52→18:25)
[2020-03-31] MEDS: LATANOPROST 0.005% OPH SOLN 2.5 ML OU SCH (21:44)
--- NOTE | 2020-04-01 09:01 | PSYCHOLOGICAL NOTE ---
Psych Note - Psych Note Date seen by psych provider: 03/31/20 Time seen by psych provider: 12:47 - [id number]. 1413 nurse collateral. Psych Note: Presenting Problem: Patient is a 69 year old female who presented to the [facility] ED the evening of 03/27/2020 via POV/daughter with RHA BRENDON Tejeda involved due to patient making suicidal statements, having mood lability and increased aggression towards family. She was held overnight for respite to herself and family. During initial evaluation patient presented euthymic with all other Mental Status criteria average. She remained that way until she was made saucedo of discharge home to daughter. Then she became depressed with congruent affect as evidenced by tearful and crying uncontrollably. Due to mood lability (euthymic, depressed) put patient on a 24 Hour Petition for Evaluation and started medication regimen (Depakote 250MG BID and Buspar 5MG BID). Then patient continued with mood lability and had property destruction to her ED room via pulled chair railing off. Patient was subsequently put on a FULL IVC, medications adjusted (Added Risperdal 0.25MG BID) and placement efforts sought out. Observed patient in her room sitting on the side of the bed, tray table in front of her and lunch on tray table. Patient's daughter Kizzy ([phone]) called to check in on patient. She stated she had spoke to clinician from yesterday who made her aware of seeking inpatient hospitalization. She was informed there were some medication adjustments and this clinician would be calling around about the referrals sent out for placement yesterday. Daughter stated "when I was told about her destroying property I explained she never did that at home, she was more verbal in her aggression." She inquired about patient's appetite since it was poor at home. Transferred daughter to Attending ED Nurse regarding appetite since she has more direct care. Attending ED Nurse noted she spoke to patient in Bengali. Nurse described patient as "oriented but not fully." Nurse went on to explain patient was pleasant and said hi. Then patient asked "do you know where my clothes are, I think they are at [employer], I was trying clothes on, the lady changed me, she put my clothes in a white bag and now I have these blue ones on." Nurse stated she simply reoriented patient by saying "no we changed you here and have your clothes." Patient responded with "Oh okay you guys have my clothes." Nurse acknowledged earlier in the day patient said "I just want to go home, they took my away, they think I am disruptive, I want to live in my house, I'm not sure how many years I have left." Nurse noted patient was tearful when talking about her , wanting to live in her house and not sure how many years she has left. Nurse stated she asked patient about being diabetic and patient responded "some say I am and others say I don't have it." Attending nurse noted patient ate today. Clinical Presentation: Suicidal Ideation Mood Lability (euthymic, depressed) Family History of Bipolar and Dementia per daughter Medications: Unable to utilize Clonidine 0.1MG weekly patch due to patient being on Coreg already Impression/Plan: Recommendation to maintain FULL IVC. Medication (Risperdal 0.25MG BID) was added yesterday. Patient had one appropriate tearful episode today. Want to ensure she is not going to cycle with mood lability again. Will consider discharge tomorrow if patient has a good overnight. ED SW/DC Planning was already involved and provided patient's daughter with resources related to aging adults and treatment. In terms of placement most facilities have denied (concern for depression versus cognitive issue, also aggression) or are full. Consulted with Dr. Hugo regarding the management and care of patient. ED Physician in agreement with recommendations.
[2020-04-01] MEDS: BUSPIRONE HCL 10 MG TABLET PO SCH (09:35)
[2020-04-01] MEDS: ATORVASTATIN CALCIUM 40 MG TABLET PO SCH (09:39)
[2020-04-01] MEDS: METFORMIN HCL 500 MG TABLET PO SCH (09:39)
[2020-04-01] MEDS: CARVEDILOL 12.5 MG TABLET PO SCH (09:40)
[2020-04-01] MEDS: DIVALPROEX SODIUM 125 MG CAP.SPRINK PO SCH (09:42)
[2020-04-01] MEDS: SACUBITRIL/VALSARTAN 24 MG/26 MG TABLET PO SCH (09:43)
[2020-04-01] MEDS: FENOFIBRATE NANOCRYSTALLIZED 145 MG TABLET PO SCH (09:44)
[2020-04-01] MEDS: RISPERIDONE 0.25 MG TABLET PO SCH (09:44)
--- NOTE | 2020-04-01 12:08 | ER Document Report ---
Doctor's Note Notes: 04/01/20 12:07 Patient has been evaluated by the psychiatric team. She is less labile today but still becomes somewhat agitated when family is discussed. Has had no further outbursts. They will consider discharge today
[2020-04-01 14:03] VITALS: BP 132/68
--- NOTE | 2020-04-04 18:08 | PSYCHOLOGICAL NOTE ---
Psych Note - Psych Note Date seen by psych provider: 04/01/20 Time seen by psych provider: 11:17 - Observation and overhear patient at 1117. [id number] re evaluation. 1412 plan of care discussion with daughter via phone. Psych Note: Presenting Problem: Patient is a 69 year old female who presented to the [facility] ED the evening of 03/27/2020 via POV/daughter with RHA MCM Ileana involved due to patient making suicidal statements, having mood lability and increased aggression towards family. She was held overnight for respite to herself and family. During initial evaluation patient presented euthymic with all other Mental Status criteria average. She remained that way until she was made saucedo of discharge home to daughter. Then she became depressed with congruent affect as evidenced by tearful and crying uncontrollably. Due to mood lability (euthymic, depressed) p ut patient on a 24 Hour Petition for Evaluation and started medication regimen (Depakote 250MG twice a day and Buspar 5MG twice a day). Then patient continued with mood lability and had property destruction to her ED room via pulled chair railing off. Patient was subsequently put on a FULL IVC, medications adjusted (Added Risperdal 0.25MG twice a day, the Clonidine was not used due to being on Coreg) and placement efforts sought out. Observed and overheard patient in her room speaking Japanese. Overnight documentation noted patient was restless and seemed lonely given she wanted to talk and interact with staff all the time. Documentation noted she cried and said she missed her . Patient was tearful at appropriate times today during revaluation with this clinician. Patient was able to stop crying (previously it seemed uncontrollable). She talked about missing her and not feeling appreciated. 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 Patient seemed to be having a difficult time with life phase change (not being able to do as much as she once could). She stated she was lonely. She stated she wanted to be home but with family. Patient was alert and oriented to self, person, place and situation. Mood was more euthymic with congruent affect, she seemed to have more control over emotions given able to stop crying and not destroying property. She denied current suicidal and homicidal ideation. Patient did not appear to be responding to internal stimuli as evidenced by fair eye contact and answering questions appropriately when addressed. Thought processes were over reverted to past times but she could be easily reoriented. Conversational speech was within normal garnica its for rate, tone and prosody. Intellectual abilities are estimated to be average. Insight, judgment and impulse control were fair given discussion about what upsets her (feeling unappreciated by family, missing her ). Patient's daughter Kizzy ([phone]) was called at 1412 and made saucedo of discharge. She stated patient is to be placed. Explained patient has been in the ED 5 days while being administered medications. Noted placement efforts were sought out but either she was denied or places were full. Noted that would have been acute or short term hospitalization for 5-7 days for medication stabilization. Psychoeducated about confabulation of stories and needing to pick battles (when to reorient or when to let it be). Provided daughter with patient referral form and Head CT to take to [facility] since unable to obtain fax number. Clinical Presentation: Suicidal Ideation Mood Lability (euthymic, depressed) Family History of Bipolar and Dementia per daughter Medications: Unable to utilize Clonidine 0.1MG weekly patch due to patient being on Coreg already Impression/Plan: Patient is cleared from acute psychiatric services. Recommendation to RESCIND full IVC. Patient's presentation is improved over the course of being in the ED (5 days). She has less mood lability, cried at a ppropriate times, and was able to stop crying. She denied suicidal and homicidal ideation. She did not seem to be responding to internal stimuli but referenced older times often. Pyshcoeducated daughter and son in law about confabulation and when to reorient. Made [facility] referral. Informed JOHNNA Tejeda of Discharge and Plan of care. Provided daughter with information to take to [facility] Medical appointment (which she was encouraged to reschedule since patient missed it due to being in ED). Also ED social work/discharge planning had already been involved/spoke to daughter/provided aging and ling term living resources. Consulted with Dr. Hugo regarding the management and care of patient. ED Physician in agreement with recommendations.
== END 2020-04-01 15:58 | disposition home or self-care (01) ==
LOC: ER 16:06
DX: F32.9 Major depressive disorder, single episode, unspecified (principal); F03.90 Unspecified dementia, unspecified severity, without behavioral disturbance, psychotic disturbance, mood disturbance, and anxiety; F41.9 Anxiety disorder, unspecified; E11.9 Type 2 diabetes mellitus without complications; F17.210 Nicotine dependence, cigarettes, uncomplicated
CPT/HCPCS: 93005; 99285; 96372; 36415; 82962; 80307 ×4; 85025; 80053; 81001; 93010; A9270 ×47; J1630; J3486; J3490